=== PATIENT | male | born 1935 | race Caucasian/White ===

== ENCOUNTER 2020-03-09 15:57 | Emergency (ER) | payer OTHER ==
--- NOTE | 2020-03-09 16:02 | PDOC ---
Rapid Medical Evaluation Time Seen by Provider: 03/09/20 15:59 Medical Evaluation: 03/09/20 16:00 CC: fell in shower on sunday and hit both knees and has worsening left knee pain causing him difficulty ambulating Exam: LROM of left patella, generally tender Plan: xray Discharge Disposition - Diagnosis Knee pain - Referrals - Patient Instructions - Post Discharge Activity
[2020-03-09 16:23] VITALS: TEMP 98.5; BMI 29.7
[2020-03-09] MEDS ORDERED: KETOROLAC TROMETHAMINE 30 MG/1 ML VIAL IM ONE (17:14)
[2020-03-09] MEDS ORDERED: KETOROLAC TROMETHAMINE 30 MG/1 ML VIAL ONE (17:15)
--- NOTE | 2020-03-09 17:28 | PDOC ---
History of Present Illness - General Chief Complaint: Injury Stated Complaint: LF KNEE INJURY Time Seen by Provider: 03/09/20 15:59 History Source: Patient Exam Limitations: No Limitations - History of Present Illness Initial Comments: 03/09/20 17:22 84-year-old male history of diabetes, hypertension, CKD accompanied by daughter complaining of left knee pain status post mechanical fall 4 days ago. states he finished taking a shower in his home, when he stepped out of the tub and injured his left knee. Denies head strike, headache, neck pain, back pain, chest pain, shortness of breath, preceding symptoms or any other complaints. Patient normally walks around without assistance however since the injury has been unable to ambulate. Requiring assistance from his family. ROS: as above PE: GENERAL: well-appearing, NAD HEAD: NCAT EYES: Pupils equal, round and reactive to light, sclera anicteric, conjunctiva clear ENT: pharynx: no erythema, no exudate, uvula midline NECK: supple CHEST: nontender RESP: clear, no w/r/r CARDIO: rrr, no m/g/r ABD: +BS, soft, nontender, non distended BACK: no midline spinal ttp, no CVAT EXTREMITIES: Left knee swelling, no bony tenderness to palpation, limited range of motion NEUROLOGICAL: Normal speech, normal gait SKIN: Warm, Dry Is this a multiple visit Asthma Patient?: No Past History - Medical History Allergies/Adverse Reactions: Allergies Allergy/AdvReac Type Severity Reaction Status Date / Time No Known Allergies Allergy Verified 03/09/20 16:07 COPD: No - Psycho-Social/Smoking History Smoking History: Never smoked Information on smoking cessation initiated: No - Substance Abuse Hx (Audit-C & DAST Scrn) How often the patient has a drink containing alcohol: Never Score: In Men: 4 or > Positive; In Women: 3 or > Positive: 0 Screen Result (Pos requires Nsg. Audit-10AR): Negative In the last yr the pt used illegal drug/Rx for NonMed reason: No Score: Yes response is considered Positive: 0 Screen Result (Positive result requires Nsg. DAST-10): Negative *Physical Exam - Vital Signs Last Vital Signs Temp Pulse Resp BP Pulse Ox 98.5 F 97 H 19 103/64 98 03/09/20 16:00 03/09/20 16:00 03/09/20 16:00 03/09/20 16:00 03/09/20 16:00 ED Treatment Course - RADIOLOGY Radiology Studies Ordered: Category Date Time Status LOWER EXTREMITY CT W/O CONTR [CT] Stat CT Scan 03/09/20 17:08 Ordered - Medications Given in the ED: ED Medications Discontinued Medications Generic Name Dose Route Start Last Admin Trade Name Shaun PRN Reason Stop Dose Admin Ketorolac Tromethamine 30 mg 03/09/20 17:14 03/09/20 17:16 Toradol Injection - IM 03/09/20 17:15 30 mg ONCE ONE Administration Medical Decision Making - Medical Decision Making 03/09/20 17:27 84-year-old male history of diabetes, hypertension, CKD accompanied by daughter complaining of left knee pain status post mechanical fall 4 days ago. states he finished taking a shower in his home, when he stepped out of the tub and injured his left knee. Denies head strike, headache, neck pain, back pain, chest pain, shortness of breath, preceding symptoms or any other complaints. Patient normally walks around without assistance however since the injury has been unable to ambulate. Requiring assistance from his family. 03/09/20 19:32 Reviewed left knee x-ray and CT left knee w/o con with patient and daughter Patient feels some improvement after Toradol 30 mg IM Placed knee immobilizer for comfort Patient understands he needs to rest, elevate knee, apply ice to area Patient has orthopedic appointment follow-up scheduled for Sunday, March 15, 2020 Discharge - Discharge Information Problems reviewed: Yes Clinical Impression/Diagnosis: Knee pain Qualifiers: Chronicity: acute Laterality: left Qualified Code(s): M25.562 - Pain in left knee Condition: Stable Disposition: HOME - Admission No - Follow up/Referral Referrals: ON STAFF,NOT [Primary Care Provider] - - Patient Discharge Instructions Additional Instructions: Keep your orthopedic appointment scheduled for March 15, 2020 Wear knee immobilizer for comfort Rest, elevate your knee and apply ice over area Alternate between ibuprofen 600 mg and acetaminophen 650 every 6 hours as needed for pain - Post Discharge Activity
[2020-03-09 19:44] VITALS: BP 109/73; PULSE 92
== END 2020-03-09 19:43 | disposition home or self-care (01) ==
LOC: JERFT 15:57
PROC: 3E023GC Introduction of Other Therapeutic Substance into Muscle, Percutaneous Approach (ICD-10-PCS; principal; 2020-03-09)
DX: M25.562 Pain in left knee (principal)
CPT/HCPCS: 73562-TC-LT-FY; 73562-TC-RT-FY; 73700-TC-RT; 96372; 99284-25